=== PATIENT | female | born 1930 | race Caucasian/White ===

== ENCOUNTER 2018-02-03 13:14 | Emergency (ER) | payer OTHER ==
[~2018-02-03] VITALS: Ht 157.5 cm; Wt 63.5 kg
[2018-02-03] MEDS ORDERED: TRADJENTA5 MG (13:28)
[2018-02-03] MEDS ORDERED: GLIMEPIRIDE4 MG (13:28)
[2018-02-03] MEDS ORDERED: FUROSEMIDE40 MG (13:29)
[2018-02-03] MEDS ORDERED: LOVASTATIN20 MG (13:29)
[2018-02-03] MEDS ORDERED: LISINOPRIL5 MG (13:29)
[2018-02-03] MEDS ORDERED: SYNTHROID75 MCG (13:29)
[2018-02-03] MEDS ORDERED: DUI500 (13:30)
== END 2018-02-03 23:55 | disposition home or self-care (01) ==
LOC: ER 13:14
DX: R63.0 Anorexia (principal); E86.0 Dehydration